=== PATIENT | female | born 1975 | race Caucasian/White ===

== ENCOUNTER 2017-10-16 07:19 | Day surgery (SDC) | payer MEDICARE ==
[~2017-10-16 07:19] MED LIST: ACETAMINOPHEN 1,000 MG/100 ML BTL IV ONE; CEFAZOLIN 2 Gram 2 GM/50 ML BAG IVPB ONE; FAMOTIDINE 20MG TABLET PO ONE; MECLIZINE 25 MG TABLET PO ONE; METOCLOPRAMIDE 10 MG TABLET PO ONE
[2017-10-16] MEDS ORDERED: LIDOCAINE 2% MDV (20MG/ML) 20ML VIAL IV ONE (07:20)
[2017-10-16] MEDS ORDERED: SEVOFLURANE 250 ML INH ONE (07:20)
[2017-10-16] MEDS ORDERED: ONDANSETRON HCL IV 4 MG/2 ML VIAL IVP ONE (07:20)
[2017-10-16] MEDS ORDERED: MIDAZOLAM HCL 2MG/2ML VIAL IV ONE (07:20)
[2017-10-16] MEDS ORDERED: KETOROLAC 30 MG/ML VIAL IVP ONE (07:20)
[2017-10-16] MEDS ORDERED: METHYLPREDNISOLONE 40MG/VIAL IM ONE (07:20)
[2017-10-16] MEDS ORDERED: PROPOFOL 10 MG/ML VIAL IV ONE (07:20)
[2017-10-16] MEDS ORDERED: HYDROCODONE/APAP 7.5/325MG TABLET PO ONE (07:20)
[2017-10-16] MEDS ORDERED: FENTANYL PF 100MCG/2ML VIAL IV ONE (07:20)
[2017-10-16] MEDS ORDERED: MORPHINE SULFATE 5 MG/ML PFS IVP ONE (07:20)
[2017-10-16] MEDS ORDERED: SCOPOLAMINE 1 PATCH TDSY TD ONE (07:20)
--- NOTE | 2017-10-17 06:50 | Operative Note ---
DATE: 10/16/2017. PREOPERATIVE DIAGNOSIS: INTERNAL DERANGEMENT OF THE RIGHT KNEE. POSTOPERATIVE DIAGNOSES: 1. DIFFUSE SYNOVITIS. 1. GRADE 3 CHONDROMALACIA OF THE PATELLA. 2. GRADE 3 TO 4 CHONDROMALACIA OF THE NOTCH. 3. GRADE 3 TO 4 CHONDROMALACIA OF THE MEDIAL FEMORAL CONDYLE. 4. ANTERIOR CRUCIATE LIGAMENT CYST. PROCEDURES: 1. Right knee arthroscopy with complete synovectomy. 2. Right knee arthroscopy with chondroplasty. STAFF SURGEON: Saroj Hernandez M.D. ANESTHESIA: General. PREPARATION: ChloraPrep. INDIVIDUAL CONSIDERATIONS: None. PROCEDURE: The patient was taken to the operating room and placed supine on the operating table. She had successful induction of a general anesthetic. Her right lower extremity was prepped and draped in the usual fashion. The patient had a superolateral inflow cannula placed. The skin had been infiltrated with 0.5% Marcaine with epinephrine prior. Blood-tinged effusion was drained, and the knee was inflated with normal saline. An inferomedial and an inferolateral portal were made in a similar fashion. The arthroscope was introduced through the inferolateral portal up into the pouch. The patellofemoral compartment basically showed grade 3 change of the patella and unstable cartilage in the medial aspect of the notch. This was all smoothed off with a shaver. Areas of the notch showed exposed bone. The patient had diffuse synovitis in the pouch and both gutters. This was debrided out with a shaver. No loose bodies were seen. Medially, there was a large, elongated central cartilage lesion with peeling cartilage on the margins of the medial femoral condyle. The meniscus was intact. The tibial plateau was intact. This was all smoothed off with a shaver. Some areas were down to bone. In the notch, there was an anterior cruciate ligament cyst which was debrided. Otherwise the cruciates were normal. The lateral compartment structures were essentially normal. The knee was irrigated out with saline to remove loose floating debris. The portals were closed with megan, and 20 mL of 0.25% Marcaine with epinephrine along with 5.0 mg of morphine and 40 mg of Depo Medrol were injected into the knee. A sterile bulky compressive dressing was applied. The patient tolerated the procedure well. Needle and sponge counts were correct. Estimated blood loss was minimal. She was taken back to recovery in good condition. There were no complications. Job Number: [id number] [facility]
== END 2017-10-16 10:35 | disposition home or self-care (01) ==
LOC: SUR 07:19
PROVIDERS: ATTEND Orthopaedic Surgery
DX: M22.41 Chondromalacia patellae, right knee (principal); M94.261 Chondromalacia, right knee; M67.461 Ganglion, right knee; E78.00 Pure hypercholesterolemia, unspecified; F41.8 Other specified anxiety disorders; J45.909 Unspecified asthma, uncomplicated; E03.9 Hypothyroidism, unspecified
CPT/HCPCS: 29876; 29888; 01400; 81025; J1885; J2405; J3010; J0690; J2270; J1030

== ENCOUNTER 2019-09-29 10:43 | Day surgery (SDC) | payer MEDICARE ==
[~2019-09-29 10:43] MED LIST changes: -ACETAMINOPHEN 1,000 MG/100 ML BTL IV ONE; +CELECOXIB 100 MG CAPSULE PO ONE; -MECLIZINE 25 MG TABLET PO ONE; +SCOPOLAMINE 1 PATCH TDSY TD ONE; +VANCOMYCIN 1GM/200ML PREMIX 1 GM/200 ML PIGGYBACK IVPB ONE
[2019-09-29] MEDS ORDERED: PROPOFOL 10 MG/ML VIAL IV ONE (10:44)
[2019-09-29] MEDS ORDERED: LIDOCAINE 2% MDV (20MG/ML) 20ML VIAL IV ONE (10:44)
[2019-09-29] MEDS ORDERED: MIDAZOLAM HCL 2MG/2ML VIAL IV ONE (10:44)
[2019-09-29 11:41] LABS: ABO GROUP O; ANTIBODY SCREEN NEGATIVE (NEGATIVE); RH TYPE NEGATIVE
[2019-09-29] MEDS ORDERED: RINGERS SOLUTION,LACTATED 1,000 ML IV ONE (11:55)
[2019-09-29] MEDS ORDERED: TRANEXAMIC ACID 1,000 MG/10 ML ML IU ONE (14:13)
[2019-09-29] MEDS ORDERED: BUPIVACAINE 0.5% W/EPI MPF 30 ML VIAL SQ ONE (14:13)
[2019-09-29] MEDS ORDERED: TRANEXAMIC ACID 1,000 MG/10 ML ML IV ONE (14:13)
[2019-09-29] MEDS ORDERED: ACETAMINOPHEN 325 MG TAB PO PRN (15:23)
[2019-09-29] MEDS ORDERED: MAGNESIUM HYDROXIDE 30 ML UDC PO PRN (15:23)
[2019-09-29] MEDS ORDERED: HYDROCODONE/APAP 10/325 TABLET PO PRN (15:23)
[2019-09-29] MEDS ORDERED: TRAMADOL HCL 50 MG TABLET PO PRN (15:23)
[2019-09-29] MEDS ORDERED: KETOROLAC 30 MG/ML VIAL IVP PRN (15:23)
[2019-09-29] MEDS ORDERED: ACETAMINOPHEN W/ CODEINE 300MG/60MG TABLET PO PRN ×2 (15:23)
[2019-09-29] MEDS ORDERED: NALOXONE 0.4 MG/1 ML VIAL IVP PRN (15:23)
[2019-09-29] MEDS ORDERED: AL HYDROX/MAG HYDROX 30ML UD PO PRN (15:23)
[2019-09-29] MEDS ORDERED: HYDROMORPHONE HCL 2 MG/ML VIAL IM PRN (15:23)
[2019-09-29] MEDS ORDERED: ONDANSETRON HCL IV 4 MG/2 ML VIAL IVP PRN (15:23)
[2019-09-29] MEDS ORDERED: ZOLPIDEM TARTRATE 5 MG TABLET PO PRN (15:23)
[2019-09-29] MEDS ORDERED: DIPHENHYDRAMINE HCL 25 MG CAPSULE PO PRN (15:23)
[2019-09-29] MEDS ORDERED: BISACODYL 10 MG SUPP RC PRN (15:23)
[2019-09-29] MEDS: HYDROCODONE/APAP 10/325 TABLET PO PRN ×2 (16:41→20:23)
[2019-09-29] MEDS: POTASSIUM CHLORIDE/D5-0.9%NACL 20 MEQ/1,000 ML BAG IV SCH (18:23)
[2019-09-29] MEDS: CEFAZOLIN 2 Gram 2 GM/50 ML BAG IVPB SCH (20:29)
[2019-09-29] MEDS: DOCUSATE SODIUM 100 MG CAPSULE PO SCH (21:28)
[2019-09-29] MEDS: ARNUITY (FLUTICASONE FUROATE) 100MCG INH INH SCH ×2 (21:29→21:47)
[2019-09-29] MEDS: CLONAZEPAM 1 MG PO SCH (21:29)
[2019-09-29] MEDS ORDERED: ZOLPIDEM 10MG PO SCH (22:00)
[2019-09-29] MEDS ORDERED: MONTELUKAST 10MG PO SCH (22:00)
[2019-09-29] MEDS ORDERED: QUETIAPINE 100 MG PO SCH (22:00)
[2019-09-29] MEDS ORDERED: ATORVASTATIN 40MG PO SCH (22:00)
[2019-09-30] MEDS: HYDROCODONE/APAP 10/325 TABLET PO PRN ×3 (00:11→13:00)
[2019-09-30] MEDS: POTASSIUM CHLORIDE/D5-0.9%NACL 20 MEQ/1,000 ML BAG IV SCH ×2 (00:13→08:39)
[2019-09-30] MEDS: CEFAZOLIN 2 Gram 2 GM/50 ML BAG IVPB SCH ×2 (04:30→11:58)
[2019-09-30 06:40] LABS: HEMOGLOBIN 13.3 gm/dl (11.6-16.0)
[2019-09-30 06:59] LABS: BLOOD UREA NITROGEN 7 mg/dL (6-20); CREATININE 0.8 mg/dL (0.5-0.9); EST GLOMERULAR FILTRATION RATE > 60 mL/min; GLUCOSE,RANDOM 133 mg/dL (74-109)
[2019-09-30] MEDS ORDERED: LEVOTHYROXINE 25MCG PO SCH (07:00)
[2019-09-30] MEDS ORDERED: OMEPRAZOLE 20MG PO SCH (07:00)
--- NOTE | 2019-09-30 08:58 | Rehab Evaluation ---
Patient Information - Patient Information Diagnosis: Left knee OA; s/p L TKA Ordered Treatment: OT Evaluate and Treat Status: Initial Evaluation Surgery: Yes History: Detail Past Medical/Surgical Hx: PAST MEDICAL/SURGICAL HISTORY Past Surgical History RIGHT KNEE SCOPE 2-2018 left knee reconstr left knee scope x's 2 appy kidney stone removal right foot x's 3 PMH - Respiratory Hx Respiratory Disorders Yes Hx Asthma Yes: DOING WELL WITH INHALER Hx Bronchitis Yes: HX OF PMH - Cardiovascular Hx Cardiovascular Disorders Yes Hx Irregular Heartbeat Yes: TACHYCARDIA CONTROLLED WITH MEDS Exercise Tolerance Fair Comment: D/T KNEE PAIN PMH - Neuro Hx Neurological Disorders Yes Hx Weakness Yes: knees PMH - GI Hx Gastrointestinal Disorders Yes Hx Gastroesophageal Reflux Yes: on meds good control PMH - Hx Genitourinary Disorders Yes Hx Kidney Stones Yes: hx of 20 yrs ago PMH - Endocrine Hx Endocrine Disorders Yes Hx Thyroid Disease Yes: on meds PMH - Musculoskeletal Hx Musculoskeletal Disorders Yes Hx Arthritis Yes: knees PMH - Psych Hx Psychiatric Problems Yes Hx Anxiety Yes: on multiple meds Hx Depression Yes Hx Suicide Attempt No Comment: last hospitalization 2013. 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 Brother's house has 2-steps to enter with no railing. Pt's bedroom will be on first floor where there is a 1/2 bath with standard toilet. Pt will need to go upstairs to second level to shower. Railing on one side of stairs. Shower upstairs includes walk-in shower with glass door enclosure, seat in shower, no grab bars. Pt unsure if there is a hand held shower head. No grab bars around toilet. Pt has 2WW available.) Precautions: [place], Fall, Other (WBAT LLE) - Time With Patient Total Time Spent With Patient (Min): 25 Treatment Procedures: Detail (OT eval low) Objective Data - Pain Pain Present: Yes Pain Intensity: 3 (L knee) Pain Scale Used: Numeric (1 - 10) - Mental Status Patient Orientation: Oriented x3 - Visual Perception Appears within normal limits for therapeutic activities (Pt wears glasses) - ROM Within normal limits (BUE's) - Strength/Tone Within normal limits (BUE's) - Coordination Appears within normal limits for therapeutic activities - Bed Mobility Independent - Transfers Independent (sit<>stand t/f) - Balance Balance Sitting: Good - Sensation Intact - Gait Detail (Pt ambulated from side of bed to recliner chair in room independently with use of 2WW.) - ADL's/IADL's Detail (Pt educated on and demo'd understanding of modified lower body drsg techniques. Pt independent with shirt don, underwear don/doff, shorts don, socks don, and shoe don. No increase in pain reported. Max A for compression stockings. Pt safe and independent with LB drsg and demonstrates good understanding of modified LB drsg techniques.) Therapy Assessment - Therapy Assessment Detail (Pt safe and independent with drsg using modified LB drsg techniques.) Prognosis - Prognosis Good Plan - Plan Occupational Therapy Plan: No further inpatient OT needed at this time.
[2019-09-30] MEDS: DOCUSATE SODIUM 100 MG CAPSULE PO SCH (09:36)
[2019-09-30] MEDS: CLONAZEPAM 1 MG PO SCH (09:39)
[2019-09-30] MEDS ORDERED: FISH OIL 1000MG PO SCH (10:00)
[2019-09-30] MEDS ORDERED: FERROUS SULFATE 325 MG TAB PO SCH (10:00)
[2019-09-30] MEDS ORDERED: METOPROLOL TARTRATE 25 MG PO SCH (10:00)
[2019-09-30] MEDS ORDERED: CETIRIZINE 10MG PO SCH (10:00)
[2019-09-30] MEDS ORDERED: VITAMIN D PO SCH (10:00)
[2019-09-30] MEDS ORDERED: [UNRECOGNIZED DRUG - OTHER] PO SCH (10:00)
[2019-09-30] MEDS ORDERED: QUETIAPINE 100 MG PO SCH (10:00)
[2019-09-30] MEDS ORDERED: DULOXETINE 60 MG PO SCH (10:00)
[2019-09-30] MEDS ORDERED: BUPROPION 150 MG PO SCH (10:00)
[2019-09-30] MEDS ORDERED: RIVAROXABAN 10 MG TABLET PO SCH (10:00)
--- NOTE | 2019-09-30 10:36 | Rehab Evaluation ---
Patient Information - Patient Information Diagnosis: Left knee OA; s/p L TKA Ordered Treatment: PT Evaluate and Treat Status: Initial Evaluation Surgery: Yes History: Detail Past Medical/Surgical Hx: PAST MEDICAL/SURGICAL HISTORY Past Surgical History RIGHT KNEE SCOPE 2-2018 left knee reconstr left knee scope x's 2 appy kidney stone removal right foot x's 3 PMH - Respiratory Hx Respiratory Disorders Yes Hx Asthma Yes: DOING WELL WITH INHALER Hx Bronchitis Yes: HX OF PMH - Cardiovascular Hx Cardiovascular Disorders Yes Hx Irregular Heartbeat Yes: TACHYCARDIA CONTROLLED WITH MEDS Exercise Tolerance Fair Comment: D/T KNEE PAIN PMH - Neuro Hx Neurological Disorders Yes Hx Weakness Yes: knees PMH - GI Hx Gastrointestinal Disorders Yes Hx Gastroesophageal Reflux Yes: on meds good control PMH - Hx Genitourinary Disorders Yes Hx Kidney Stones Yes: hx of 20 yrs ago PMH - Endocrine Hx Endocrine Disorders Yes Hx Thyroid Disease Yes: on meds PMH - Musculoskeletal Hx Musculoskeletal Disorders Yes Hx Arthritis Yes: knees PMH - Psych Hx Psychiatric Problems Yes Hx Anxiety Yes: on multiple meds Hx Depression Yes Hx Suicide Attempt No Comment: last hospitalization 2013. 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 Brother's house has 2-steps to enter with no railing. Pt's bedroom will be on first floor where there is a 1/2 bath with standard toilet. Pt will need to go upstairs to second level to shower. Railing on one side of stairs. Shower upstairs includes walk-in shower with glass door enclosure, seat in shower, no grab bars. Pt unsure if there is a hand held shower head. No grab bars around toilet. Pt has 2WW available.) Precautions: [place], Fall, Other (WBAT LLE) - Time With Patient Total Time Spent With Patient (Min): 30 Treatment Procedures: Detail (Initial Evaluation, low complexity) Subjective Information - Subjective Information Per Patient (The patient had minimal complaints of L Knee pain and did not rate her pain using 0-10 pain scale.) Objective Data - Mental Status Patient Orientation: Oriented x3 - ROM Not within normal limits (The L knee AROM is limited s/p surgery. All other LE AROM is WNL.) - Strength/Tone Other (The patient's LE strength was not tested s/p surgery however is functio nal.) - Bed Mobility Independent (The patient is independent with supine to and from sit transfer.) - Transfers Independent (The patient was independent with sit to and from stand transfer.) - Balance Balance Sitting: Good Balance Standing: Good - Sensation Intact - Gait Detail (The patient ambulated with std. walker a distance of 150 feet x 1 independently WBAT on the L LE. The patient ambulated on a flight of 3 steps and a flight of 7 steps with use of folded walker and one railing using proper technique with supervision for safety only.) Therapy Assessment - Therapy Assessment Detail (The patient was independent with bed mobility, transfers and ambulation on levels and stairs. The patient has met all inpt. PT goals and is discharged from inpt. PT.) Patient Education - Patient Education Teaching Topic: Exercise/Activity (The patient completed TKA HEP including seated heel slides, ankle pumps, gluteal sets, quad sets, hamstring sets, SLR.) Response: Return Demonstration Teaching Method: Discussion, Demonstration, Handout Teaching Recipient: Patient Barriers To Learning: None Problem List - Problem List Physical Therapy Problem List: Detail (Decreased L knee AROM and L LE strength) Goals - Goals Physical Therapy Goals: The patient has completed all inpt. PT goals. Plan - Plan Physical Therapy Plan: The patient is discharged from inpt. Pt and is to continue with Home PT.
--- NOTE | 2019-10-02 10:52 | Operative Note ---
DATE OF SURGERY: 09/29/2019 PREOPERATIVE DIAGNOSIS: Profound end-stage arthrosis of the left knee. POSTOPERATIVE DIAGNOSIS: Profound end-stage arthrosis of the left knee. OPERATION: 1. Cemented left total knee arthroplasty using [employer] components with a size 4 Oxinium femur, a size 3 stemmed tibia baseplate, a 9 mm lipped highly crosslinked tibial insert, and a 35 mm all-plastic patella. 2. Removal of deep buried hardware left proximal tibia. STAFF SURGEON: Saroj Hernandez MD ANESTHESIA: Spinal. PREPARATION: Chloraprep. INDIVIDUAL CONSIDERATIONS: None. PROCEDURE: The patient was taken to the operating room, placed supine on the operating room table. She had a successful induction of a spinal anesthetic. Her left leg was prepped and draped in the usual fashion. The limb was elevated and tourniquet was inflated to 250 mmHg. The patient had a midline approach to the knee but I had to make some adjustment distally because of her previous surgery. Sharp dissection carried down through skin and subcutaneous tissue. Small veins were coagulated with a Bovie. A medial arthrotomy was performed. The patella was everted and the knee was flexed. The patient had exposed bone in all 3 compartments. The knee was basically a disaster. Fat pad was resected, an ACL remnant was sacrificed, provisional anterior meniscectomies were performed, and the capsule was released from the medial proximal tibia. The patient had an interference screw in the proximal tibia. I used an osteotome to remove bone over the top of it and I was able to easily remove it. The patient had initial femoral steamboat pilot hole made freehand. The intramedullary femoral cutting jig was placed. It was cut in 7.0 degrees of valgus and adjusted for rotation and secured with pins for a 10 mm resection. The initial transverse cut was then made. The skin guide was placed in 3 degrees of external rotation, and the steamboat pilot holes were drilled. It was found that a size 4 would be appropriate. The anterior and posterior cuts followed by chamfer cuts were made. Large osteophytes removed, and a size 4 trial was placed and found to fit well. The tibia was brought forward, and the remainder of the meniscal remnants removed with a Bovie. The extraarticular tibial cutting jig was placed. It was cut in neutral with a 3-degree AP slope. It was set for a 9 mm resection keyed off the high lateral side and secured with pins. When cutting the tibia, care was taken to preserve the PCL insertion on the tibia. After removing large medial osteophytes, I could fit a size 4 baseplate trial, and it was adjusted for rotation and secured with pins. With a 9 mm trial and femoral trial, there was excellent motion and stability. Ligamentous balance and rotation alignment were thought to be normal. Femoral steamboat pilot holes were impacted and the tibial keel stamp was impacted, and these trial components were removed. The patient had a thick patella and roughly 9 mm of bone was removed freehand. I could easily fit a 35 patella, and the 3 steamboat pilot holes were then drilled. The tourniquet was let down briefly to get bleeders posteriorly and then placed back up again. The knee was then thoroughly irrigated out with pulsatile Betadine and saline to remove any visual or palpable debris. Bony surfaces were then dried and dried with a CarboJet prior to cementing. A size 3 stemmed tibia baseplate was cemented into place followed by impaction of the 9 mm lipped highly crosslinked tibial insert followed by cementing in the size 4 Oxinium femur followed by cementing in the 35 mm patella. The implant surfaces were compressed, excess cement was removed. After the cement had set, there was excellent motion and stability. Ligamentous balance, rotation alignment, and patellofemoral tracking were normal. No lateral release was required. Tourniquet was let down. Hemostasis was obtained with a Bovie. Final irrigation. The capsule was then closed with a running #2 quill. Prior to this, I infiltrated the skin, subcu, and periosteum with 30 mL of 0.5% Marcaine with epinephrine. After closing the capsule, the subcu was closed in layers with running 0 quill and skin was closed with megan. Then 1 g of tranexamic acid was mixed with 30 mL of saline and injected into the knee through a sterile 18-gauge needle, and a sterile bulky compressive FRANNIE-type dressing was applied. The patient tolerated the procedure well. Needle and sponge counts were correct. Estimated blood loss was minimal, and she was taken back to recovery in good condition. There were no complications. AMELIA
== END 2019-09-30 13:45 | disposition home health service (06) ==
LOC: SUR 10:43 → MEDSURG 16:15 → SUR 09-30 13:45
PROVIDERS: ATTEND Orthopaedic Surgery
DX: M17.12 Unilateral primary osteoarthritis, left knee (principal); E78.00 Pure hypercholesterolemia, unspecified; K21.9 Gastro-esophageal reflux disease without esophagitis; F32.9 Major depressive disorder, single episode, unspecified; E03.9 Hypothyroidism, unspecified; J45.909 Unspecified asthma, uncomplicated; Z86.79 Personal history of other diseases of the circulatory system
CPT/HCPCS: 27447; 20680; 01402; 64447; 85018; 85014; 80048; 81025; 86900; 86901; 86850; 94640 ×2; 76942; C1776 ×2; J1885; J0690 ×2; J3490 ×2; J3370; J3480; J7120